=== PATIENT | female | born 1960 | race Caucasian/White ===

== ENCOUNTER → 2017-09-02 14:54 | Outpatient (POV) | payer OTHER, SELFPAY | DX: Z00.00 Encounter for general adult medical examination without abnormal findings (principal) ==

== ENCOUNTER → 2018-04-07 14:02 | Outpatient (POV) | payer OTHER, SELFPAY | DX: Z00.00 Encounter for general adult medical examination without abnormal findings (principal) ==

== ENCOUNTER → 2018-10-13 12:51 | Outpatient (POV) | payer OTHER, SELFPAY | DX: Z00.00 Encounter for general adult medical examination without abnormal findings (principal) ==

== ENCOUNTER → 2022-01-15 14:28 | Outpatient (CLI) | payer MEDICAID, SELFPAY | PROVIDERS: PCP Student in an Organized Health Care Education/Training Program; Visit Provider Student in an Organized Health Care Education/Training Program | DX: R09.81 Nasal congestion (principal) | CPT/HCPCS: 87070 ==

== ENCOUNTER 2023-10-31 19:45 | Emergency (ER) | payer MEDICARE, SELFPAY ==
[2023-10-31 19:48] VITALS: BP 138/87; PULSE 82; RESP 20; TEMP 37.1; O2SAT 94; BMI 29.8
--- NOTE | 2023-10-31 20:18 | XR_ITS ---
PROCEDURE INFORMATION: Exam: XR Left Shoulder Exam date and time: 10/31/2023 8:20 PM Age: 63 years old Clinical indication: Injury or trauma; Fall; Other: Pain TECHNIQUE: Imaging protocol: Radiologic exam of the left shoulder. Views: 2 or more views. COMPARISON: No relevant prior studies available. FINDINGS: Bones/joints: Normal. Soft tissues: Normal. IMPRESSION: No acute findings.
--- NOTE | 2023-10-31 20:51 | XR_ITS ---
PROCEDURE INFORMATION: Exam: XR Left Humerus Exam date and time: 10/31/2023 8:50 PM Age: 63 years old Clinical indication: Injury or trauma; Fall; Other: Pain TECHNIQUE: Imaging protocol: Radiologic exam of the left humerus. Views: 2 or more views. COMPARISON: CR XR SHOULDER LT MIN 2V 10/31/2023 8:20 PM FINDINGS: Bones/joints: Normal. Soft tissues: Normal. IMPRESSION: No acute findings.
--- NOTE | 2023-10-31 20:51 | XR_ITS ---
PROCEDURE INFORMATION: Exam: XR Left Elbow Exam date and time: 10/31/2023 8:58 PM Age: 63 years old Clinical indication: Injury or trauma; Fall; Other: Pain TECHNIQUE: Imaging protocol: Radiologic exam of the left elbow. Views: 1 or 2 views. COMPARISON: CR XR HUMERUS LT 10/31/2023 8:50 PM FINDINGS: Bones/joints: Normal. Soft tissues: Normal. IMPRESSION: No acute findings.
--- NOTE | 2023-10-31 20:51 | XR_ITS ---
PROCEDURE INFORMATION: Exam: XR Left Forearm Exam date and time: 10/31/2023 8:58 PM Age: 63 years old Clinical indication: Injury or trauma; Fall; Other: Pain TECHNIQUE: Imaging protocol: Radiologic exam of the left forearm. Views: 2 views. COMPARISON: CR Elbow L 10/31/2023 8:58 PM FINDINGS: Bones/joints: Normal. Soft tissues: Normal. IMPRESSION: No acute findings.
--- NOTE | 2023-10-31 20:53 | ED_ITS ---
Discharge Plan Disposition Patient Disposition: Home, Self-Care Chief Complaint: PAIN Prescriptions Prescriptions: No Action acetaminophen 500 mg tablet 500 mg PO QID PRN albuterol sulfate 90 mcg/actuation HFA aerosol inhaler 2 puff inhalation Q4-6H PRN Anoro Ellipta 62.5-25 mcg/actuation blister with device 1 inh inhalation DAILY atorvastatin 20 mg tablet 20 mg PO DAILY dicyclomine 20 mg tablet 20 mg PO TID duloxetine 60 mg capsule,delayed release(DR/EC) 60 mg PO DAILY loratadine [Claritin] 10 mg tablet 10 mg PO DAILY methocarbamol 750 mg tablet 750 mg PO QID omeprazole 20 mg capsule,delayed release(DR/EC) 20 mg PO DAILY paroxetine mesylate 10 mg tablet 10 mg PO DAILY tizanidine 4 mg capsule 4 mg PO TID PRN cetirizine [Allergy Relief (cetirizine)] 10 mg tablet 10 mg PO DAILY PRN (Reason: sinusitis) Qty: 90 0RF azelastine 137 mcg (0.1 %) aerosol,spray 1 spray intranasal BID Qty: 30 6RF Rx Instructions: administer into each nostril fluticasone propionate 50 mcg/actuation spray,suspension 1 spray intranasal BID Rx Instructions: administer into each nostril Referrals Follow up/Referrals: Provider,Referral, MD [Primary Care Provider] - See instructions True Valentin DO [Staff Physician] - See instructions Activity Restrictions/Add. Instructions Additional Instructions/Restrictions: At this time it was felt you are safe to be discharged home. If new or wors ening symptoms please do not hesitate to return the emergency department. Please use your sling for comfort and if symptoms persist please follow-up with your family doctor or call and schedule an appointment with Dr. Valentin (the bone doctor) for continued evaluation. For pain please take Tylenol and ibuprofen every 6 hours as needed, it is okay to take them at the same time. Clinical Impressions Clinical Impression: Pain of upper arm after trauma, Pain of forearm after trauma, Acute pain of left shoulder due to trauma Discharge ED Provider: Thai Beckett General Adult HPI General Chief complaint: PAIN Stated complaint: AO 10/31/23 1915 Left shoulder injury Time Seen by Provider: 10/31/23 20:08 Mode of Arrival: Ambulatory Source of Information: Patient Limitations: No Limitations Description of Symptoms (Recalled from ER Triage Doc. by RN): Pt presents to ED for L shoulder pain after falling into a chair. Pt states she has no other pain at this time. Pt is A&O*4. Pt rates pain 12/04. History of Present Illness HPI narrative: Patient is a 63-year-old female who presents emergency department for evaluation traumatic injury sustained in a fall. Patient fell onto her left shoulder prior to arrival causing severe pain at her forearm, elbow, upper arm, shoulder. She is right-handed. Due to persistent symptoms she presents here for continued evaluation. Denies striking her head or anticoagulants. Related Data Home Medications Medication Instructions Recorded Confirmed acetaminophen 500 mg tablet 500 mg PO QID PRN 01/15/22 02/18/22 albuterol sulfate 90 mcg/actuation 2 puff inhalation Q4-6H PRN 01/15/22 02/18/22 aerosol inhaler atorvastatin 20 mg tablet 20 mg PO DAILY 01/15/22 02/18/22 dicyclomine 20 mg tablet 20 mg PO TID 01/15/22 02/18/22 duloxetine 60 mg capsule,delayed 60 mg PO DAILY 01/15/22 02/18/22 release loratadine 10 mg tablet (Claritin) 10 mg PO DAILY 01/15/22 02/18/22 methocarbamol 750 mg tablet 750 mg PO QID 01/15/22 02/18/22 omeprazole 20 mg capsule,delayed 20 mg PO DAILY 01/15/22 02/18/22 release paroxetine mesylate 10 mg tablet 10 mg PO DAILY 01/15/22 02/18/22 tizanidine 4 mg capsule 4 mg PO TID PRN 01/15/22 02/18/22 umeclidinium 62.5 mcg-vilanterol 1 inh inhalation DAILY 01/15/22 02/18/22 25 mcg/actuation powdr for inhalation (Anoro Ellipta) fluticasone propionate 50 1 spray intranasal BID 02/18/22 02/18/22 mcg/actuation nasal spray,suspension Previous Rx's Medication Instructions Recorded cetirizine 10 mg tablet (Allergy 10 mg PO DAILY PRN sinusitis #90 01/15/22 Relief (cetirizine)) tabs azelastine 137 mcg (0.1 %) nasal 1 spray intranasal BID #30 mL 02/18/22 spray Allergies Allergy/AdvReac Type Severity Reaction Status Date / Time Codeine Allergy Intermediate I-ITCHING,N Uncoded 02/18/22 10:30 /V [facility] Disclaimer: The information contained in this section may have been updated after the patient was seen, as this information can be updated by other users. Medical History (Updated 10/31/23 @ 22:02 by Thai Beckett MD) Sinus congestion Surgical History (Updated 02/18/22 @ 10:49 by Meghana Fletcher RN) H/O eye surgery History of laparoscopic appendectomy Social History Smoking Status: Unknown if ever smoked alcohol intake: never current occupational status: retired Travel in the last 8 weeks: None household members: spouse marital status: ROS Obtained: Yes Systems reviewed as appropriate & no additional complaints except as documented Physical Exam General General appearance: alert and other (Appearing in pain) Head Head exam: atraumatic and normocephalic Eye Eye exam: Present PERRL ENT ENT exam: Present mucous membranes moist Neck Neck exam: Present normal inspection Chest Chest inspection: Present normal inspection and symmetric chest wall rise Respiratory Respiratory exam: Absent respiratory distress Cardiovascular Cardiovascular exam: Present regular rate and normal rhythm Abdominal Exam Abdominal exam: Present soft Extremities Exam Extremities exam: Present normal inspection and other (Tenderness over the left shoulder, humerus, elbow, forearm. Palpable left radial pulse. [employer] strength intact left side. No tenderness over the remainder of the extremities.) Neurological Exam Neurological exam: Present alert Psychiatric Psychiatric exam: Present normal affect Skin Skin exam: Present warm and dry Medical Decision Making [place] Inquiry Pt receiving controlled substance: No Vital Signs: 10/31/23 19:48 Temperature 98.7 F Temperature Source Oral Pulse Rate [Left] 82 Respiratory Rate 20 Blood Pressure [Right Arm] 138/87 Blood Pressure Mean [Right Arm] 104 02 Sat by Pulse Oximetry 94 L Oxygen Delivery Method Room Air Orders (Tests/Meds): ED MEDICATIONS Discontinued Medications Generic Name Dose Route Start Last Admin Trade Name Freq PRN Reason Stop Dose Admin Acetaminophen 1,000 mg 10/31/23 20:51 10/31/23 20:59 Acetaminophen 500mg Tab PO 10/31/23 20:52 1,000 mg ONCE ONE Administration Ibuprofen 600 mg 10/31/23 20:51 10/31/23 20:59 Ibuprofen 600 Mg Tablet PO 10/31/23 20:52 600 mg ONCE ONE Administration ORDERS Category Date Time Status Elbow XR left 2 views [XR elbow LT 2V] Stat Exams 10/31/23 20:51 Completed Forearm XR left 2 views [XR forearm LT 2V] Stat Exams 10/31/23 20:51 Completed Humerus XR left [XR humerus LT] Stat Exams 10/31/23 20:51 Completed Shoulder XR left minimum 2 views [XR shoulder LT min 2V Exams 10/31/23 20:18 Completed ] Stat Medical Decision Narrative: In summary patient is a 63-year-old female past medical history described above who presents emergency department for evaluation traumatic injury sustained in a fall. Patient is hemodynamically stable nontoxic-appearing upon arrival, afebrile, appearing in pain. Differential diagnosis includes musculoskeletal strain, brachial plexopathy, fracture, among others. Workup will be conducted with plain films of the left upper extremity. Initial inventions include Tylenol and ibuprofen. X-rays of left extremity informally interpreted by me, no acute displaced fracture. Given this patient will be given a sling for comfort will follow-up with family doctor for continued evaluation if symptoms persist. Critical Care Critical Care Time Critical Care Time: No
[2023-10-31] MEDS: ACETAMINOPHEN 500MG TAB 1000 MG PO (20:59)
[2023-10-31] MEDS: IBUPROFEN 600 MG TABLET PO (20:59)
[2023-10-31 22:04] VITALS: BP 142/78; PULSE 66; RESP 16; TEMP 36.6; O2SAT 96
== END 2023-10-31 22:10 | disposition home or self-care (01) ==
PROVIDERS: Emergency Provider Emergency Medicine
DX: M79.622 Pain in left upper arm (principal); M79.632 Pain in left forearm; M25.512 Pain in left shoulder; M25.522 Pain in left elbow; W19.XXXA Unspecified fall, initial encounter
CPT/HCPCS: 73030; 73060; 73070; 73090; 99283